=== PATIENT | female | born 1995 | race Caucasian/White ===

== ENCOUNTER 2017-03-21 13:00 | Outpatient (RCR) | payer OTHER | END 2017-03-22 10:28 | LOC: MKS.ESL.PT 13:00 | DX: N94.2 Vaginismus (principal); N94.10 Unspecified dyspareunia ==

== ENCOUNTER 2019-04-04 22:07 | Emergency (ER) | payer SELFPAY ==
[~2019-04-04] VITALS: Ht 162.6 cm; Wt 54.5 kg
[2019-04-04 22:10] VITALS: BP 127/80; TEMP 98.2
[2019-04-04 22:36] LABS: COLLECTION METHOD CLEAN CATCH
[2019-04-04 22:45] LABS: MUCOUS Present /lpf; PH 6 (5-8); URINE APPEARANCE Clear; URINE BACTERIA Rare /hpf; URINE BILIRUBIN Negative (NEGATIVE); URINE BLOOD 1+ (NEGATIVE); URINE COLOR Straw; URINE GLUCOSE Negative (NEGATIVE); URINE KETONE Negative (NEGATIVE); URINE LEUKOCYTE ESTERASE Negative (NEGATIVE); URINE NITRATE Negative (NEGATIVE); URINE PROTEIN(semi-quant) Negative (NEGATIVE); URINE UROBILINOGEN Negative (NEGATIVE)
[2019-04-04 22:51] LABS: TRICYCLIC ANTIDEPRESS URINE NEGATIVE
[2019-04-04] MEDS ORDERED: LITHIUM CA150 MG/CAP PO (23:15)
[2019-04-04 23:18] LABS: BASO % 0.3 % (0.0-2.0); GRAN # 4.2 (1.4-6.5); GRAN % 71.9 % (42.2-75.2); HEMATOCRIT 43.9 % (37.0-47.0); HEMOGLOBIN 14.3 g/dl (12.5-16.0); LYMPH # 1.4 (1.2-3.4); LYMPH % 23.5 % (20.0-51.0); MEAN CELL VOLUME 92 fl (80.0-100.0); MEAN CORPUSCULAR HEMOGLOBIN 30 pg (27.0-31.0); MEAN CORPUSCULAR HGB CONC 33 g/dl (33.0-37.0); MEAN PLATELET VOLUME 9.9 fl (7.4-10.4); MONO # 0.2 (0.1-0.6); MONO % 3.8 % (1.7-9.3); PLATELET COUNT 255 K/mm3 (130-400); RED BLOOD COUNT 4.79 M/mm3 (4.10-5.30); REDCELL DISTRIBUTION WIDTH-CV 13.4 % (11.5-14.5)
[2019-04-04 23:30] LABS: ACETAMINOPHEN < 10 ug/mL (10-30); ALANINE AMINOTRANSFERASE 15 U/L (9-52); ALBUMIN 4.8 gm/dL (3.5-5.0); ALCOHOL(ethanol),MEDICAL 146 mg/dL; ALKALINE PHOSPHATASE 56 U/L (50-136); ANION GAP 13 mmol/L (7-16); AST,SGOT 25 U/L (15-37); BILIRUBIN,TOTAL 0.3 mg/dL (0.0-1.0); BLOOD UREA NITROGEN 6 mg/dL (7-17); CARBON DIOXIDE 23 mmol/L (22-30); CHLORIDE 110 mmol/L (98-107); CREATININE, serum 0.61 (0.52-1.25); GLUCOSE 120 mg/dL (74-106); POTASSIUM 4.1 mmol/L (3.4-5.0); SALICYLATE < 1.0 mg/dL; SODIUM 145 mmol/L (137-145); TOTAL PROTEIN 8.5 gm/dL (6.4-8.2)
[2019-04-05 06:07] VITALS: PULSE 105
== END 2019-04-05 06:07 | disposition home or self-care (01) ==
LOC: COL.ER 22:07
PROVIDERS: Physician Assistant
DX: R45.851 Suicidal ideations (principal); F32.9 Major depressive disorder, single episode, unspecified